=== PATIENT | male | born 1985 | race Two or more races ===

== ENCOUNTER 2020-05-23 05:23 | Emergency (ER) | payer SELFPAY ==
[~2020-05-23] VITALS: Ht 165.1 cm; Wt 63.5 kg
[2020-05-23 05:30] VITALS: BP 152/78
[2020-05-23] MEDS ORDERED: Haloperidol 5mg/ml Inj IM ONE (05:30)
--- NOTE | 2020-05-23 05:31 | Emergency Room Report ---
History of Present Illness General Chief Complaint: Medical Clearance Source: Patient, Law Enforcement (Uli Singh MD) Present Illness HPI This is a 34-year-old male who was brought in by police with altered mental status. Patient was hopping on fences carrying machete. He claimed that someone was chasing after him. business services officer initially thought he may be on drugs. Patient denied being on drugs. He was a poor historian. Did not tell me if he has some underlying psychiatric issue but he said that they checked his urine by using a catheter. He denies any suicidal thought homicidal thought. Does admit to thinking that people are after him. (Uli Singh MD) Allergies: Coded Allergies: No Known Allergies (Unverified , 05/23/20) COVID-19 Screening COVID-19 risk:Contact w/high r: No Has patient experienced garza: No COVID-19 Testing performed SHIPPER RECEIVER: No (Uli Singh MD) Patient History Past Medical History: see triage record, old chart reviewed, psych hx Past Surgical History: none Family History: none Social History: other Immunizations: other Reviewed Nursing Documentation: PMH: Agreed; PSxH: Agreed (Uli Singh MD) Nursing Documentation-PMH Past Medical History: No Stated History (Uli Singh MD) Review of Systems ENT: Denies: sore throat Cardiovascular: Denies: chest pain, palpitations Gastrointestinal/Abdominal: Denies: nausea, vomiting, diarrhea Musculoskeletal: Denies: back problems Skin: Denies: rash Neurological: Denies: CHAUDHRY, seizures All Other Systems: negative except mentioned in HPI (Uli Singh MD) Physical Exam Vital Signs Date Time Temp Pulse Resp B/P (MAP) Pulse Ox O2 Delivery O2 Flow Rate FiO2 05/23/20 05:20 98.4 130 18 152/78 (102) 97 Room Air Vitals with tachycardia Sp02 EP Interpretation: reviewed, normal General Appearance: alert/responsive, no apparent distress, non-toxic Head: normocephalic, atraumatic Eyes: PERRL, EOMI ENT: oropharynx normal Neck: supple/symm/no masses Respiratory: effort normal, no rhonchi, no wheezing Cardiovascular: no murmur, gallop, rub Gastrointestinal: non-tender, no mass, non-distended, no rebound/guarding, normal bowel sounds Musculoskeletal: gait & station normal Neurologic: oriented x3, sensory intact, motor strength/tone normal Psychiatric: other - Flat affect Suicide Risk Assessment: Suicidal Ideation: No Had intent to initiate attempt: No Pt's plan for suicide attempt: No Has means to complete attempt: No Skin: no rash, normal palpation (Uli Singh MD) Medical Decision Making Diagnostic Impression: Primary Impression: Acute psychosis Additional Impression: Methamphetamine abuse ER Course This patient presents with acute psychosis bizarre behavior. He has paranoia delusion. Most likely underlying schizophrenia. Please officer placed him on a 5150 hold. Patient denies suicidal thought homicidal thought. Does feel that people are after him. Will get labs and drug screen for medical clearance. Once he is medically clear, he can get psychiatric evaluation. (Uli Singh MD) ER Course Assumed care of the patient from the previous provider at approximately 1400. Please refer to initial note for full history and physical exam. Briefly, 34-year-old male brought in on 5150 for danger to self. Positive for amphetamines. Other labs within normal limits. Medically cleared for psychiatric evaluation. Expected to [facility]. Will arrange transport. (Beny Vazquez MD) EKG Diagnostic Results Rate: normal Rhythm: NSR ST Segments: no acute changes (Uli Singh MD) Last Vital Signs Date Time Temp Pulse Resp B/P (MAP) Pulse Ox O2 Delivery O2 Flow Rate FiO2 05/23/20 05:20 98.4 130 18 152/78 (102) 97 Room Air Status: improved (Uli Singh MD) Disposition: PSYCH HOSP/UNIT Condition: Stable Uli Singh MD May 23, 2020 05:31 Beny Vazquez MD May 24, 2020 18:13
--- NOTE | 2020-05-23 05:45 | NUR ---
Nurse Note: Pt brought in by ambulance 94 c/o HR 130 and for medical clearance. Pt denies chest pain, shortness of breath, n/v/d. After PD spoke with pt, pt is on a 5150 hold. Pt denies HI/SI; pt is DTO. Pt awake and alert, crying. Pt ambulatory with steady gait. Pt cooperative. IV est on LT AC; blood collected. Urine provided and sent to lab. Rapid covid swab collected and sent to lab. All belongings taken from pt and placed in locker 2; machette given to security. All safety measures met; RN monitoring pt.
[2020-05-23 05:57] LABS: APPEARANCE,URINE CLEAR; BILIRUBIN, URINE NEGATIVE (NEGATIVE); COLOR,URINE PALE YELLOW; GLUCOSE, URINE (UA) NEGATIVE (NEGATIVE); KETONES,URINE NEGATIVE (NEGATIVE); LEUKOCYTE ESTERASE ,URINE NEGATIVE (NEGATIVE); NITRITE,URINE NEGATIVE (NEGATIVE); PH,URINE 7 (4.5-8.0); PROTEIN,URINE NEGATIVE (NEGATIVE); UROBILINOGEN,URINE NORMAL MG/DL (0.0-1.0)
[2020-05-23 06:03] LABS: BASOPHILS % (AUTO) 1.3 % (0.0-2.0); EOSINOPHILS % (AUTO) 0.5 % (0.0-3.0); HEMATOCRIT 41.8 % (42.0-52.0); LYMPHOCYTES % (AUTO) 24.8 % (20.0-45.0); MEAN CORPUSCULAR VOLUME 86 FL (80-99); NEUTROPHILS % (AUTO) 67.5 % (45.0-75.0); PLATELET COUNT 306 K/UL (150-450); RED BLOOD COUNT 4.86 M/UL (4.70-6.10); RED CELL DISTRIBUTION WIDTH 12.3 % (11.6-14.8); WHITE BLOOD COUNT 5.6 K/UL (4.8-10.8)
[2020-05-23 06:05] LABS: ANION GAP 7 mmol/L (5-15); BLOOD UREA NITROGEN 14 mg/dL (7-18); CALCIUM 8.9 MG/DL (8.5-10.1); CARBON DIOXIDE 29 MMOL/L (21-32); CHLORIDE 102 MMOL/L (98-107); CREATININE 1.1 MG/DL (0.55-1.30); POTASSIUM 3.7 MMOL/L (3.5-5.1); SODIUM 138 MMOL/L (136-145)
[2020-05-23 06:12] LABS: ALANINE AMINOTRANSFERASE 36 U/L (12-78); ALBUMIN/GLOBULIN RATIO 1.1 (1.0-2.7); ALKALINE PHOSPHATASE 88 U/L (46-116); ASPARTATE AMINO TRANSFERASE 27 U/L (15-37); BILIRUBIN,TOTAL 0.6 MG/DL (0.2-1.0)
--- NOTE | 2020-05-23 06:40 | NUR ---
Nurse Note: Pt calm, asleep. Breakfast meal ordered. All safety measures met; will continue to monitor.
--- NOTE | 2020-05-23 07:09 | NUR ---
Nurse Note: Endorsed care to [facility] Escalona for continuity of care.
[2020-05-23 07:50] VITALS: BP 142/85
--- NOTE | 2020-05-23 07:51 | NUR ---
ED Nurse Note: Patietn sleeping on gurney with no distress. Respirations are even and unlabored. Primary RN as sitter.
--- NOTE | 2020-05-23 11:03 | NUR ---
ED Nurse Note: pt recieved from [facility] Baltazar. pt remains in bed with his eyes closed, no acute distress is noted at this time, lunch meal tray has been ordered for pt. safety precautions remain in place
--- NOTE | 2020-05-23 11:07 | NUR ---
HAND-OFF: Report given to Rosalinda HONG.
--- NOTE | 2020-05-23 12:30 | NUR ---
ED Nurse Note: pt able to tolerate 80% of meal tray that was provided without incident. pt provided with toileting and extra blankets and pillow for comfort. no acute distress is noted, all safety precautions are in place, sitter remains at bedside. will cont to monitor pt
[2020-05-23 13:00] VITALS: BP 147/88
--- NOTE | 2020-05-23 16:26 | NUR ---
ED Nurse Note: pt is resting in bed at this time, no acute distress is noted, all safety precautions are in place, sitter remains at bedside. will cont to monitor pt
[2020-05-23 17:00] VITALS: BP 143/86
--- NOTE | 2020-05-23 19:00 | NUR ---
ED Nurse Note: pt tolerated 45% of dinner meal tray, no acute distress is noted, all safety precautions are in place, sitter remains at bedside. will cont to monitor pt
[2020-05-23 20:56] VITALS: BP 141/87
[2020-05-23 23:00] VITALS: BP 135/80
--- NOTE | 2020-05-23 23:00 | NUR ---
ED Nurse Note: Pt endorsed by HAL Tellez. Pt resting in bed with eyes closed, non-labored breathing, no signs of distress, will continue to monitor.
--- NOTE | 2020-05-24 01:00 | NUR ---
ED Nurse Note: Pt offered snacks and water, pt refused at this time, denies pain. Pt given blankets, VSS.sitter present. will continue to monitor
[2020-05-24 03:00] VITALS: BP 132/78
--- NOTE | 2020-05-24 08:00 | NUR ---
ED Nurse Note: pt resting with even and regular resp effort. pt easily awakens and is calm when awake. awaiting psych facility availability.
--- NOTE | 2020-05-24 10:40 | NUR ---
CLINICALS FAXED AGAIN TO [facility] WAITING FOR CALL BACK
[2020-05-24 11:08] VITALS: BP 137/80
--- NOTE | 2020-05-24 11:20 | NUR ---
ED Nurse Note: pt received from [facility] Perla. pt is resting comfortably in bed, he does not appear to be in any distress at this time. snacks and drinks provided up on request. pt is cooperative with care and able to make needs known. safety precautions are in place, sitter remains at pt bedside.
--- NOTE | 2020-05-24 13:31 | NUR ---
SPOKE TO RIKA AT [facility] WILL CALL BACK AFTER REVIEW THE CHART
--- NOTE | 2020-05-24 15:00 | NUR ---
spoke to ankur jeff will call back still review the charts
[2020-05-24 15:20] VITALS: BP 141/82
--- NOTE | 2020-05-24 17:35 | NUR ---
ED Nurse Note: covid results faxed to [facility]
[2020-05-24 18:22] VITALS: BP 143/82
--- NOTE | 2020-05-24 18:35 | NUR ---
ED Nurse Note: pt able to tolerate 60% of dinner tray, additional juices provided upon request. no acute distress is noted at this time, will cont to monitor pt and prepare for trasfer to [facility] [[email or web address]] marybeth
--- NOTE | 2020-05-24 20:49 | NUR ---
ED Nurse Note: report given to HAL Plata at [facility]
--- NOTE | 2020-05-24 20:58 | NUR ---
ED Nurse Note: [id number] here to transport pt to [facility] Addendum: 05/24/20 at 2114 by RORY all belongings sent with pt to [facility], with exception of knife
[2020-05-24 21:00] VITALS: BP 118/64
== END 2020-05-24 21:00 ==
LOC: EDBD 05:23 → EMR 05:31
DX: F23 Brief psychotic disorder (principal); F15.10 Other stimulant abuse, uncomplicated
CPT/HCPCS: 36415; 80053; 80307; 81003; 85025; 93005; 96374; 99285; G0480; J1630; U0002